=== PATIENT | male | born 1940 | race Caucasian/White ===

== ENCOUNTER 2020-12-12 14:49 | Emergency (ER) | payer MEDICARE, SELFPAY ==
[2020-12-12] VITALS (19 sets, daily range): BP systolic 129–148; BP diastolic 67–91; PULSE 81–106; RESP 9–23; TEMP 35.8; O2SAT 98–100
--- NOTE | ~2020-12-12 | CT_ITS ---
EXAMINATION: CTA chest PE protocol DATE: 12/12/2020 18:12 INDICATION: Shortness of breath shortness of breath TECHNIQUE: Computed tomography angiography (CTA) of the chest was performed with 100 mL Omnipaque-350 intravenous contrast timed to evaluate the pulmonary arteries. Coronal maximum intensity projection 3D-reconstructions were created by the technologist. The dose-length product (DLP) was 352.63 mGy-cm. Automated exposure control and iterative reconstruction technique were employed. COMPARISON: None. FINDINGS: The pulmonary arteries are well-opacified. No pulmonary embolism is identified. There is mi ld emphysema. An approximately 2.5 cm groundglass opacity is present in the right lower lobe. There i s no pleural effusion or pneumothorax. Mild right hilar lymphadenopathy is noted. The heart size is n ormal. Calcified coronary artery atherosclerosis is noted. There is moderate thoracic spondylosis. IMPRESSION: 1. No pulmonary embolism. 2. Minimal groundglass opacity of the right lower lobe which may be infectious or inflammatory howeve r minimally invasive adenocarcinoma could have a similar appearance. Follow-up CT in 3-6 months is re commended. 3. Mild right hilar lymphadenopathy, likely reactive. Reviewed, dictated and finalized at location A. NG WINDER IMPRESSION: 1. No pulmonary embolism. 2. Minimal groundglass opacity of the right lower lobe which may be infectious or inflammatory however minimally invasive adenocarcinoma could have a similar appearance. Follow-up CT in 3-6 months is recommended. 3. Mild right hilar lymphadenopathy, likely reactive.
--- NOTE | 2020-12-12 15:25 | ECG_ITS ---
Measurements Intervals Arvin Rate: 91 P: 31 VT: 168 QRS: -3 QRSD: 92 T: -27 QT: 361 QTc: 445 Interpretive Statements SINUS OR ECTOPIC ATRIAL RHYTHM LOW QRS VOLTAGE IN LIMB LEADS BORDERLINE T WAVE ABNORMALITY- INFERIOR LEADS BORDERLINE ECG Electronically Signed On 12-12-2020 15:33:59 MAILS SUPERVISOR by Eugenio Sanchez D.O.
[2020-12-12 16:19] LABS: Basophils Absolute Auto 0.1 K/mm3 (0.0-0.1); Basophils Percent Auto 0.6 % (0.2-1.2); Eosinophils Absolute Auto 0.1 K/mm3 (0-0.3); Eosinophils Percent Auto 0.5 % (0-4.4); Hematocrit 40.1 % (42.0-52.0); Hemoglobin 14.3 g/dL (14.0-18.0); Immature Granulocyte Absolute 0.08 K/mm3 (0.00-0.031); Immature Granulocyte Percent A 0.5 % (0-0.5); Lymphocytes Absolute Auto 1.12 K/mm3 (0.9-3.2); Lymphocytes Percent Auto 7.5 % (18.3-44.2); Mean Corpuscular HGB Conc 35.7 g/dl (32-36); Mean Corpuscular Hemoglobin 30.9 pg (26-34); Mean Corpuscular Volume 86.6 fl (80-100); Mean Platelet Volume 9.4 fl (7.4-10.4); Monocytes Absolute Auto 1.8 K/mm3 (0.1-0.6); Monocytes Percent Auto 11.9 % (2.6-8.5); Neutrophils Absolute Auto 11.9 K/mm3 (1.3-6.7); Platelet Count Result 402 k/mm3 (150-375); Red Blood Count 4.63 M/mm3 (4.6-6.20); Red Cell Distribution Width 11.6 % (11.5-14.5)
[2020-12-12 16:24] LABS: Anion Gap 11 mmol/L (8-16); Blood Urea Nitrogen 11 mg/dL (9-20); Calcium 9.8 mg/dL (8.4-10.2); Carbon Dioxide 23 mmol/L (22-30); Chloride 103 mmol/L (98-107); Estimated CRCL calculation 65 ml/min; Estimated Glomerular Filt Rate > 60; Glucose 110 mg/dL (75-110); Potassium 3.9 mmol/L (3.4-5.0); Sodium 137 mmol/L (137-145)
--- NOTE | 2020-12-12 17:37 | ED.ARRPALP ---
HPI - Arrhythmia/Palpitations General Chief Complaint: Arrhythmia/Palpitations Stated Complaint: palpations Time Seen by Provider: 12/12/20 15:46 History of Present Illness HPI narrative: Patient is a 80-year-old male who presents ER with palpitations. Patient reports he was seen in the [place] ER earlier today. He was diagnosed with atrial flutter and received 5 mg of Lopressor IV. It controlled his heart rate. He was then prescribed Toprol-XL for home. He was given follow-up with cardiology. Reports he been feeling well and went to a meeting and [place]. He then began to feel his heart rate elevate. He noticed on his pulse oximeter that his heart rate was going 130 bpm. He took his newly prescribed Toprol-XL. The symptoms lasted for couple hours but after taking the Toprol XL it slowed down upon his arrival here. He was having no chest pain or chest pressure. He did have some mild shortness of breath during the period of elevated heart rate. No additional concerns. Related Data Home Medications Medication Instructions Recorded Confirmed amlodipine 12/12/20 metoprolol tartrate 50 mg PO DAILY 12/12/20 spironolactone 12/12/20 Allergies Allergy/AdvReac Type Severity Reaction Status Date / Time Penicillins Allergy Rash Verified 12/12/20 15:50 Review of Systems Review of Systems: All systems reviewed & are unremarkable except as noted in HPI and below Constitutional: Constitutional: Denies chills, Denies fever(s) and Denies weakness ENT: Denies nasal congestion and Denies sore throat Cardiovascular: Cardiovascular: Denies chest pain, Reports rapid heart rate and Denies radiating jaw, neck or arm pain Respiratory: Respiratory: Denies chest congestion, Denies cough, Reports dyspnea and Denies wheezing Gastrointestinal: Gastrointestinal: Denies abdominal pain, Denies nausea and Denies vomiting Neurologic: Denies dizziness, Denies focal weakness and Denies numbness PMFSH Past Medical History Medical History (Updated 12/12/20 @ 18:57 by Luisito Sanchez MD) Diabetes Hyperlipidemia Hypertension Surgical History Surgical History (Updated 12/12/20 @ 17:39 by Luisito Sanchez MD) No pertinent past surgical history Social History Social History (Updated 12/12/20 @ 19:00 by Luisito Sanchez MD) Social History: Quit smoking over 30 years ago. Exam Narrative: Exam Narrative: GENERAL: Well-appearing, well-nourished, and in no acute distress. HEAD: Normocephalic, atraumatic. CHEST: Clear to auscultation. No respiratory distress. HEART: Regular rate and rhythm. Normal peripheral pulses. ABDOMEN: Soft, nontender, nondistended. EXTREMITIES: Normal range of motion. No edema. SKIN: Warm, dry, no rash. NEURO: Alert and oriented x3. PSYCH: Normal mood and affect. Course Course Emergency Course: Symptoms resolved on arrival here. Patient with mild elevation of WBCs when compared to outside records. Will rule out PE given recurrent arrhythmia today. Patient stable at this time. Vital Signs Vital signs: Vital Signs Temperature 96.4 F L 12/12/20 14:57 Pulse Rate 106 H 12/12/20 14:57 Respiratory Rate 18 12/12/20 14:57 Blood Pressure 138/77 12/12/20 14:57 Pulse Oximetry 100 12/12/20 14:57 Temperature 96.4 F L 12/12/20 14:57 Pulse Rate 85 12/12/20 18:52 Respiratory Rate 9 L 12/12/20 18:52 Blood Pressure 132/68 12/12/20 18:52 Pulse Oximetry 98 12/12/20 18:52 MDM - Arrhythmia/Palpitations Lab Data Result diagrams: 12/12/20 16:07 12/12/20 16:07 Labs: Lab Results 12/12/20 12/12/20 Range/Units 16:07 16:07 WBC 15.0 H (4.5-10.0) K/mm3 RBC 4.63 (4.6-6.20) M/mm3 Hgb 14.3 (14.0-18.0) g/dL Hct 40.1 L (42.0-52.0) % MCV 86.6 (80-100) fl MCH 30.9 (26-34) pg MCHC 35.7 (32-36) g/dl RDW 11.6 (11.5-14.5) % Plt Count 402 H (150-375) k/mm3 MPV 9.4 (7.4-10.4) fl Immature Gran % (Aut
== END 2020-12-12 19:14 | disposition home or self-care (01) ==
PROVIDERS: Emergency Provider Emergency Medicine
DX: R00.2 Palpitations (principal); R91.8 Other nonspecific abnormal finding of lung field; E11.9 Type 2 diabetes mellitus without complications; I10 Essential (primary) hypertension; E78.5 Hyperlipidemia, unspecified
CPT/HCPCS: 36415; 71275; 80048; 85025; 93005; 99284; Q9967

== ENCOUNTER 2025-03-21 13:54 | Outpatient (CLI) | payer MEDICARE, SELFPAY ==
--- NOTE | ~2025-03-21 | PE_ITS ---
EXAMINATION: PET_PETPSMAST_PT DATE: 03/21/2025 15:41 INDICATION: Prostatic cancer TECHNIQUE: 4.577 mCi of Illucix Ga-68([id number]) was administered i.v. Low dose computed vincent graphy (CT) images were acquired from the base of the brain to the base of the brain to the proximal thighs for attenuation correction and anatomic localization. Positron emission tomography (PET) image s were acquired in the same distribution beginning 82 minutes after injection. Images including fused PET/CT images were reconstructed in axial, coronal, and sagittal planes. Automated exposure control technique was employed. The dose-length product was 1019.36mGy-cm. COMPARISON: None FINDINGS: Head/neck: Typical pattern of symmetric physiologic increased activity in the lacrimal, parotid and submandibula r glands as well as along the mucosa of the nasal and oral cavities, pharynx and hypopharynx. No path ologically enlarged cervical lymphadenopathy or suspicious foci of increased uptake in the visualized head or neck. Chest: Mild dependent atelectasis in both lower lobes. No suspicious pulmonary nodules, pneumonia, pulmonary edema or pleural effusion. Heart size normal. Atherosclerotic coronary artery calcific lesion. No pe ricardial effusion. Thoracic aorta is normal in caliber. No pathologically enlarged or PSMA avid thor acic lymphadenopathy. Abdomen/pelvis/proximal thighs: Physiologic renal accumulation and excretion of activity in the kidneys, bladder and along portions o f ureters. There are 3 small region of increased PSMA to be in the prostate, one each at the left and right posterior margin of the prostate near the confluence with the seminal vesicles, slightly large r and more intense with maximal SUV of 11.3 on the right and with maximal SUV of 7.7 on the left. The third, smallest and most intense focus is located more caudally along the posterior inferior prostat e slightly to the right of midline with maximal SUV of 14.6. Normal degree and slightly heterogenous pattern of increased uptake throughout the liver and spleen without radiologic correlate or dominant PSMA avid lesion. The gallbladder, pancreas and bilateral adrenal glands are normal. Moderate uptake scattered throughout the bowels with typical duodenal and proximal jejunal predominance and without r adiologic correlate, also likely physiologic. Normal appendix. No other abnormal foci of increased up take or pathologically enlarged lymphadenopathy in the abdomen, pelvis or proximal thighs. Musculoskeletal: Severe thoracic spondylosis with mild anterior wedging of a few mid thoracic vertebral bodies. No leticia picious lytic, blastic or abnormally PSA may avid bone lesions. IMPRESSION: 1. 3 small regions of increased activity at the prostate consistent with locally recurrent disease. N o other evident metastatic disease. Reviewed, dictated and finalized at location B. IMPRESSION: 1. 3 small regions of increased activity at the prostate consistent with locall y recurrent disease. No other evident metastatic disease.
--- OUTSIDE RECORDS SUMMARY | 2025-03-21 15:12 | XMS_ITS ---
Author Organization [facility] Address [address] [place] [address] Care Team Providers Care Data Operations Leader Name Role Phone Rubens Mai Ma, MD Primary Care Provid er William Riggs MD Unavailable [phone] Jovanny Coombs MD Unavailable [phone] Armando Galeas MD Unavailable Hardy Montoya M.A., MD Unavailable [phone] Active Problems Problem Noted Date Diagnosed Date Prostate cancer 02/24/2022 Overview (02/24/2022): Added automatically from request for surgery [id number] Elevated PSA 01/24/2022 Overview (01/24/2022): Added automatically from request for surgery [id number] Abdominal pain 02/11/2021 Overview (02/11/2021): Added automatically from request for surgery [id number] Weight loss 02/11/2021 Overview (02/11/2021): Added automatically from request for surgery [id number] Abnormal CT scan of heart 01/16/2021 Overview (01/16/2021): Added automatically from request for surgery [id number] Chest pain on breathing 01/16/2021 Bandemia 01/16/2021 Controlled type 2 diabetes m ellitus without complication, without long-term current use of insulin 01/16/2021 Essential hypertension 01/16/2021 Mixed hyperlipidemia 01/16/2021 History of atrial fibrillation 01/16/2021 Encounter for screening colonoscopy 03/02/2018 Overview (03/02/2018): Added automatically from request for surgery [id number] 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 Diagnosis. 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 Right frontal scalp resection measuring 4 x 4 cm (Agency 09/10/17) Rhomboid adjacent tissue transfer reconstruction measruing 6 x 4 cm of the right scalp defect (Agency 09/10/17 Dyslipidemia Current Treatment and Therapy Plans No current plan information found. Past Treatment and Therapy Plans No past plan information found. Lifetime Dose Tracking * Chemical Lifetime Dose Automatic Entry Manual Entr y Air kerma at the reference point (Ka,r) 355 mGy 0 mGy 355 mGy
--- OUTSIDE RECORDS SUMMARY | 2025-03-21 15:12 | XMS_ITS | Data Portability ---
Author Organization [facility], [address] [place] [address] ([place]) Address [address] [place] [phone] Assessment Encounter Date Assessment Date Assessment LastModified by Organization Details LastModified Time 06/14/2024 06/14/2024 Discussed the importance of using sunscreen SPF 30 as well as wearing a wide brimmed hat. Monitor for any new or changing moles or skin lesions. Recommended yearly full-body skin checks. Biopsy results: final defect 1.2cm, hyperplastic actinic keratosis [email or web address] Not available 06/19/2024 19:09:48 09/13/2024 09/13/2024 Discussed the importance of using sunscreen SPF 30 as well as wearing a wide brimmed hat. Monitor for any new or changing moles or skin lesions. Recommended yearly full-body skin checks. No recurrence of HAK to left preauricular. [email or web address] Not available 09/12/2024 08:20:15 03/14/2025 03/14/2025 Discussed the importance of using sunscreen SPF 30 as well as wearing a wide brimmed hat. Monitor for any new or changing moles or skin lesions. Recommended yearly full-body skin checks. No recurrence of HAK to left preauricular. [email or web address] Not available 03/13/2025 10:53:53 Plan of Treatment Reminders Order Date Submit Date Provider Last Modified By Organization Details Last Modified Time Details Appointments Establish ed Patient 15.EST 2024 09:45A M Jasmin Murray Not available Not available Not available Lab surgical pathology study 2023 024 GREG Pr Only - Pr Laboratory, [address] [place] [address], [id number], 06/17/2024 15:07:09 Referral None recorded. Procedures None recorded. Surgeries None recorded. Imaging None recorded. Medication Orders None recorded. Patient TargetsNo targets recorded. Patient Instructions Encounter Date Encounter Id Patient Instructions Last Modified By Organization Details Last Modified Time 06/14/2024 [id number] Plan of care reviewed and discussed with patient. Patient verbalizes understanding and has no questions. [email or web address] Not available 06/13/2024 17:49:02 09/13/2024 [id number] Plan of care reviewed and discussed with patient. Patient verbalizes understanding and has no questions. [email or web address] Not available 09/12/2024 08:18:52 03/14/2025 [id number] Plan of care reviewed and discussed with patient. Patient verbalizes understanding and has no questions. [email or web address] Not available 03/13/2025 10:53:53 Reason for Referral None Reported. Results Created Date Observation Date Name Description Value Unit Range Abnormal Flag Note LastModifiedBy Organization Detail LastModifiedTime 06/14/20 24 06/17/2024 surgi clary patho logy study tissue exam biopsy [facility] [address] [address] Ph. Hunter Granados MD, PhD, [facility] WILLY ONSaundra, HUMAIRA Lux nt: WHIT STEINBERG, PATRICIA Arguello G Sampl e ID: [id number] Repor t Statu s: Final :1 1939 Case #: [id number] Age: 83 Y Gende r: M Date Colle cted: 06/14 MRN # : [id number] Date Recei angie: 06/16 Repor drake Date: 06/17 FINAL DIAGN OSIS: Skin, left pre auric ular, shave biops y: - Actin ic kerat osis, hyper plast ic ICD-1 0: L57.0 Elect george Robles ied by MD Ladonna Nguyễn 06/17 14:04 SPECI MEN SOURC E: Skin, left pre auric ular, shave biops y GROSS DESCR IPTIO N: The speci men conta iner( s) and requi sitio n have the same patie nt name. Recei angie in 10% neutr al buffe red forma festus for forma festus-f ixed paraf fin-e mbedd ed secti ons label ed left pre auric ular is an unori ented 1.8 x 1.5 cm fragm ent of light- lainez skin excis ed to a depth of 0.1 cm. A 1.8 x 1.5 x 0.1 cm brown rough ened betsey n is prese nt on the skin surfa ce and is adjac ent to the nehemias n. The speci men is inked , seria lly secti on, and entir barry submi tted for histo logic study in two casse ttes. CLINI CLARY INFOR MATJESSICA N: Skin biops y, left pre auric ular, SCC vs BCC. Not Available Sc Only - [facility] Laboratory [address] [place] [address], [id number], 06/17/2024 15:07:09 Result Notes None recorded. Problems Name Problem SNOMED Code Status Onset Date Resolution Date Notes Provider Name and Address Organization Details Recorded Time Seborrheic keratosis 212614462 Active 2024 Jasmin Murray PA-C [address] [place] [address], [phone], [facility] 5 10:17:32 Solar degeneratio n 67147919 Active 2023 Jasmin Murray PA-C [address] [place] [address], [phone], [facility] 5 10:17:33 Squamous cell carcinoma 990812858 Completed 202306/14/2024 RIGHT FORHEA D- 2004 [facility] 4 10:38:07 Neoplasm of uncertain behavior of skin 96922433 Active 2023 Jasmin Murray PA-C [address] [place] [address], [phone], [facility] 4 10:55:12 Actinic keratosis 897132609 Active 2023 left preaur icular - 06/15 [facility] 4 10:36:52 Problem Notes None recorded. Procedures Surgical History Date Name Laterality Status Provider Name and Address Organization Details Recorded Time 5 Actinic Keratoses completed Jasmin Murray PA-C [address] [place] [address], [phone], [facility] 03/14/2025 10:17:18 4 Actinic Keratoses completed Jasmin Murray PA-C [address] [place] [address], [phone], [facility] 09/13/2024 09:53:03 4 Shave Biopsy completed Jasmin Murray PA-C [address] [place] [address], [phone], [facility] 06/14/2024 10:54:59 4 Actinic Keratoses completed Jasmin Murray PA-C [address] [place] [address], [phone], [facility] 06/14/2024 10:54:24 Imaging Results None recorded. Procedure Notes None recorded. Medical Equipment None Reported. Allergies Allergen ID Allergen Name Allergen Category Reaction Reaction Severity Criticality Documentation Date Start Date Code Code System Note Provider Name and Address Organization Details Recorded Time 0185826 Product containin g penicilli n (product) medicatio n swelling Not available Not available 06/14/2024 95291 8001 SNOMED Not Available Not Available Not Available Medications Name Sig Start Date Stop Date Status Note LastModified by Organization Details LastModified Time atorvastati n 20 mg tablet TAKE 1 TABLET BY MOUTH EVERYDAY AT BEDTIME 06/14 completed Not Available Not Available Not Available metoprolol succinate ER 50 mg tablet,exte nded release 24 hr TAKE 1 TABLET BY MOUTH TWICE A DAY active Not Available Not Available No t Available isosorbide mononitrate ER 30 mg tablet,exte nded release 24 hr TAKE 1 TABLET BY MOUTH EVERY DAY active Not Available Not Available No t Available spironolact one 25 mg tablet TAKE 1 TABLET (25 MG TOTAL) BY MOUTH DAILY. active Not Available Not Available No t Available tamsulosin 0.4 mg capsule TAKE 1 CAPSULE BY MOUTH EVERY DAY active Not Available Not Available No t Available benzonatate 100 mg capsule TAKE 1 CAPSULE BY MOUTH THREE TIMES A DAY NEEDED FOR COUGH 03/14 completed Not Available Not Available Not Available fluocinonid e 0.05 % topical cream APPLY TO AFFECTED AREA 3-4 TIMES A DAY NEEDED FOR ITCH/BITE /POSION JULIAN 06/14 completed Not Available Not Available Not Available cholecalcif ramesh (vitamin D3) 125 mcg (5,000 unit) capsule TAKE 1 CAPSULE (125 MCG TOTAL) BY MOUTH DAILY. active Not Available Not Available No t Available ezetimibe 10 mg tablet TAKE 1 TABLET BY MOUTH EVERY DAY active Not Available Not Available No t Available Repatha Syringe 140 mg/mL subcutaneou s syringe INJECT 1 ML (140 MG TOTAL) INTO THE SKIN EVERY 14 DAYS active Not Available Not Available No t Available Vitals None Recorded Social History None recorded. Functional Status None recorded. Mental Status None recorded. Family History Nothing Reported Notes:DENIES FAM H/O SKIN CA NCER Medical History No medical history recorded. Past Encounters Encounter ID Performer Location Encounter Start Date Encounter Closed Date Diagnosis/Indication Diagnosis SNOMED-CT Code Diagnosis ICD10 Code Diagnosis Note [id number] [facility] [address] [place] [address] 06/14/2024 10:31:08 06/14/2024 11:02:59 Solar degeneration 93705642 L57.9 Neoplasm o f uncertain behavior of skin 73044461 D48.5 Actinic keratosis 007 L57.0 cryo x 10 [id number] [facility] [address] [place] [address] 09/13/2024 09:40:30 09/13/2024 09:56:29 Actinic keratosis L57.0 cryo x 4 [id number] [facility] [address] [place] [address] 03/14/2025 09:51:02 03/14/2025 10:17:29 Actinic keratosis 489522301 L57.0 cryo x 5 Seborrheic keratosis 394 902406 L82.1 Solar degeneration 08752 006 L57.8 Health Concerns Section Related Observation LastModified by Organization Detai ls LastModified Time None Recorded Concern Status LastModified by Organization Details LastModified Time None Recorded Advance Directives Directive None Recorded Payers Encounter Date Sequence Insurance Name Policy Number Policy Parker Covered Member ID Parker Member ID Guarantor Name 06/14/2024 1 [place] Puma Shelbyt [id number] 5 Puma Thompsonrett 09/13/2024 1 [place] P[place] Thompson[place] [id number] 5 Puma Thompsonrett 03/14/2025 1 [place] Puma Thompson[place] [id number] 5 Puma Shelbyt Notes Date Note Type Note Provider Name and Address Organization Details Recorded Time 06/14/2024 text/html 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 Ceballos, here to [facility] face. Pt states a h/o SCC to right forehead removed in 2004. Jasmin Murray PA-C [address] [place] [address], [phone], [facility] 06/19/2024 19:10:28 09/13/2024 text/html 3 mo recheck biopsy proven HAK to left preauricular. Recheck 10 AKs treated with cryo last OV. Hx of SCC to right forehead removed in 2004. no new concerns. Jasmin Murray PA-C [address] [place] [address], [phone], [facility] 09/13/2024 09:53:41 03/14/2025 text/html 6 mo [place] recheck. 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 Hx of SCC to right forehead removed in 2004. has new area of concern to his chest. all others you treated are gone per pt. Jasmin Murray PA-C [address] [place] [address], [phone], [facility] 03/14/2025 10:18:13
--- OUTSIDE RECORDS SUMMARY | 2025-03-21 15:12 | XMS_ITS | Encounter Summary ---
Author Organization [facility] Address [address] [place] [address] Care Team Providers Care Avionics Systems Integration Specialist Name Role Phone Rubens Mai MD Primary Care Provider [phone] Hardy Montoya MD Unavailable [phone] Héctor Ceballos MD Primary Care Provider + [phone] Encounter Details Date Type Department Care Team (Late st Contact Info) Description 12/17/2020 Hospital Follow-up Call [facility] [address] [place] [address] Cny Daniel, RN Social History Tobacco Use Types Packs/Day Years Used Date Smoking Tobacco: Former Cigarettes Q uit: 1981 Smokeless Tobacco: Never Alcohol Use Standard Drinks/Week Comments Not Currently 0 (1 standard drink = 0.6 oz pur e alcohol) 2 glasses of alcohol weekly Overall Financial Resource Strain (CARDIA) Answe r Date Recorded How hard is it for you to pa y for the very basics like food, housing, medical care, and heating? Not hard at all 12/13/2020 [facility] [place] [facility] ional [facility] - Occupational Stress Questionnaire Answer Date Recorded Do you feel stress - tense, restless, nervous, or anxious, or unable to sleep at night because your mind is troubled all the time - these days? Not at all 12/13/2020 Hunger Vital Sign Answer Date Recorded Within the past 12 months, y ou worried that your food would run out before you got the money to buy more. Never true 12/13/19 21 Within the past 12 months, t he food you bought just didn't last and you didn't have money to get more. Never true 12/13/2020 PRAPARE - Transportation Answer Date Re corded In the past 12 months, has l ack of transportation kept you from medical appointments or from getting medications? No 11/24 In the past 12 months, has l ack of transportation kept you from meetings, work, or from getting things needed for daily living? No 12/13/2020 Sex and Gender Information Value Date Recorded Sex Assigned at Not on file Legal Sex Male 9:12 AM HELP DESK SUPERVISOR Gender Identity Not on file Sexual Orientation Not on file Occupation Industry Job Start Date Job End Date retired Not on file Not on file Not on file COVID-19 Exposure Response Date Recorded In the last month, have you been in contact with someone who was confirmed or suspected to have Coronavirus / COVID-19? Yes 12/13/2020 11:14 AM HELP DESK SUPERVISOR documented as of this encounter Functional Status * RETIRED Are you deaf or do you have serious difficulty hearing Answer Date of Assessment Author Status No 12/13/2020 8:25 AM HELP DESK SUPERVISOR Activ e * RETIRED Are you blind or do you have serious difficulty seeing, even when wearing glasses? Answer Date of Assessment Author Status No 12/13/2020 8:25 AM HELP DESK SUPERVISOR Activ e * Do you have serious difficulty walking or climbing stairs? Answer Date of Assessment Author Status No 12/13/2020 8:25 AM HELP DESK SUPERVISOR Erma Ho RN Active * Do you have difficulty dressing or bathing? Answer Date of Assessment Author Status No 12/13/2020 8:25 AM Erma Mercedes RN Active * Because of a physical, mental, or emotional condition, do you have difficulty doing errands alone such as visiting a doctor's office or shopping? Answer Date of Assessment Author Status No 12/13/2020 8:25 AM Erma Mercedes RN Active documented as of this encounter Mental Status * Because of a physical, mental, or emotional condition, do you have serious difficulty concentrating, remembering, or making decisions? Answer Entry Date Author Status No 12/13/2020 8:25 AM Erma Mercedes RN Active documented in this encounter Plan of Treatment Upcoming Encounters Date Type Department Care Team (Late st Contact Info) Description 04/13/2025 7:20 AM CDT Office Visit [facility] [address] [place] [address] Héctor Ceballos MD [address] [place] [address] 10/11/2025 9:00 AM HELP DESK SUPERVISOR Office Visit [facility] [address] [place] [address] Hardy Montoya MD [address] , [facility] [address] [place], [place] [address] documented as of this encounter Visit Diagnoses Not on filedocumented in this encounter Additional Health Concerns Infection Onset Date Last Indicated Resolved Time COVID-19 Confirmed 12/13/2020 12/13/2020 12:34 AM HELP DESK SUPERVISOR COVID-19 Rule Out 12/13/2020 12/13/2020 10/14/2021 5:21 PM HELP DESK SUPERVISOR COVID-19 Rule Out 07/08/2022 07/08/2022 07/08/2022 1:43 PM CDT COVID-19 Confirmed 07/08/2022 07/08/2022 12:33 AM CDT COVID-19 Rule Out 10/26/2024 10/26/2024 10/26/2024 4:16 PM HELP DESK SUPERVISOR documented as of this encounter Care Teams Avionics Systems Integration Specialist Relationship Specialty Start Date End Date Rubens Mai MD [address] [place] [address] [place] [address] PCP - General EMERGENCY MEDICINE 12/13/20 04/13/22 Héctor Ceballos MD [address] [place] [address] PCP - General FAMILY PRACTICE 04/14/22 Hardy Montoya MD [address] , [facility] [address] [place] [address] [place] Director Semiconductor INTERVENTIONAL CARDIOLOGY 01/07/21 documented as of this encounter
--- OUTSIDE RECORDS SUMMARY | 2025-03-21 15:12 | XMS_ITS | Clinical Summary ---
Author Organization [facility] Address [address] [place] [address] Phone Care Team Providers Care Clinical Nursing Director Name Role Phone Rubens Mai MD Primary Care Provider [phone] Allergies Active Allergy Reactions Criticality Noted Date Comments Penicillin G Swelling 02/10/2017 Medications METFORMIN HCL PO Take by mouth. Active Simvastatin (ZOCOR PO) Take by mouth. Active Social History Tobacco Use Types Packs/Day Years Used Date Smoking Tobacco: Every Day Cigarettes 1 25 Alcohol Use Standard Drinks/Week Comments Not Asked 0 (1 standard drink = 0.6 oz pur e alcohol) Sex and Gender Information Value Date Recorded Sex Assigned at Not on file Legal Sex Male 5:41 PM CDT Gender Identity Not on file Sexual Orientation Not on file Plan of Treatment Health Maintenance Due Date Last Done Comments Hepatitis C Virus (HCV) Screening 1942 TdaP Immunization 1942 Pneumococcal Immunization (5 0+ years) (1 of 1 - PCV) 1992 Zoster Immunization (1 of 2) 1992 Respiratory Syncytial Virus (RSV) Immunization (Adult) (1 - 1-dose 75+ series) 2017 Influenza Immunization (#1) 2024 SARS-COV-2 Immunization (2023- season) 2024 10/31/2021, 02/25/2021, 01/28/2021 Hepatitis B Immunization Aged Out No longer eligible based on patient's age to complete this topic Meningococcal Immunization (ACWY) Aged Out No longer eligible b ased on patient's age to complete this topic Rotavirus Immunization Aged Out No lo nger eligible based on patient's age to complete this topic Insurance MEDICARE [employer] GENERIC Care Teams Clinical Nursing Director Relationship Specialty Start Date End Date Rubens Mai MD [address] [place] [address] ZACHARY STILES [id number] PCP - General Family Medicine 09/02/16
--- OUTSIDE RECORDS SUMMARY | 2025-03-21 15:12 | XMS_ITS | Clinical Summary ---
Author Organization [facility] Address [address] [place] [address] Care Team Providers Care Journeyman Wireman Name Role Phone Rubens Mai Ma, MD Primary Care Provid er William Riggs MD Unavailable [phone] Jovanny Coombs MD Unavailable [phone] Armanod Galeas MD Unavailable Hardy Montoya M.A., MD Unavailable [phone] Allergies Active Allergy Reactions Criticality Noted Date Comments Penicillins Swelling Medium Medications nitroglycerin (NITROSTAT) 0.[address] 1 tablet (0.4 mg total) under the tongue every 5 (five) minutes as needed for chest pain Hold if low blood pressures, Call 911 25 tablet 1 Active acetaminophen (TYLENOL) 500 mg tablet Take 2 tablets (1,000 mg total) by mouth every 8 (eight) hours as needed for pain for up to 20 doses 40 tablet 1 Active Additional Information Patient taking differently:1,000 mg oralAs needed, pain, Reported on 01/27/2022 isosorbide mononitrate ER (IMDUR) 30 mg 24 hr tabletIndication s:prevention of anginal pain in coronary artery disease Take 30 mg by mouth every morning 2 Active metoprolol XL (TOPROL-XL) 50 mg extended release tabletIndication s:hypertension Take 50 mg by mouth 2 (two) times a day 1 Active spironolactone (ALDACTONE) 25 mg tabletIndication s:hypertension Take 25 mg by mouth every morning 2 Active tamsulosin (FLOMAX) 0.4 mg extended release capsuleIndicatio ns:benign prostatic hyperplasia with lower urinary tract sx Take 0.4 mg by mouth every morning 1 Active tamsulosin (FLOMAX) 0.4 mg extended release capsuleIndicatio ns:Benign prostatic hyperplasia, unspecified whether lower urinary tract symptoms present Take 1 capsule (0.4 mg total) by mouth daily 30 capsule 11 2 Active Active Problems Problem Noted Date Diagnosed Date Prostate cancer 02/24/2022 Overview (02/24/2022): Added automatically from request for surgery [id number] Elevated PSA 01/24/2022 Overview (01/24/2022): Added automatically from request for surgery [id number] Abdominal pain 02/11/2021 Overview (02/11/2021): Added automatically from request for surgery [id number] Weight loss 02/11/2021 Overview (02/11/2021): Added automatically from request for surgery [id number] Abnormal CT scan of heart 01/16/2021 Overview (01/16/2021): Added automatically from request for surgery [id number] Chest pain on breathing 01/16/2021 Bandemia 01/16/2021 Controlled type 2 diabetes m ellitus without complication, without long-term current use of insulin 01/16/2021 Essential hypertension 01/16/2021 Mixed hyperlipidemia 01/16/2021 History of atrial fibrillation 01/16/2021 Encounter for screening colonoscopy 03/02/2018 Overview (03/02/2018): Added automatically from request for surgery [id number] Primary cancer of skin of forehead 03/02/2018 Overview (03/02/2018): Added automatically from request for surgery [id number] 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 Diagnosis. 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 Right frontal scalp resection measuring 4 x 4 cm ([facility] 09/10/17) Rhomboid adjacent tissue transfer reconstruction measruing 6 x 4 cm of the right scalp defect ([facility] 09/10/17 Dyslipidemia Immunizations Immunization Administration Dates Next Due Moderna SARS-CoV-2 Monovalen t Vaccination (12+ YRS) 10/31/2021,02/25/2021,01/28/2021 Surgical History Surgery Date Site/Laterality Comments COLONOSCOPY 03/23/2018 - 04/22/2018 ESOPHAGOGASTRODUODENOSCOPY 01/21/2021 - 02/20/2021 CARDIAC CATHETERIZATION 12/24/2020 - 01/20/2021 Left SKIN CANCER EXCISION 11/23/2017 - 11/22/2018 scalp, squaumous cell PROSTATE BIOPSY 02/04/2022 Medical History Medical History Date Comments Hypertension Dxd ~2001 History of skin cancer SCCA Scal p s/p excision 2017 History of atrial flutter Starte d on Eliquis 11/2020 Motion sickness PONV (postoperative nausea a nd vomiting) Per pt, occured with SCCA ex cision 2017 but denies PONV with colonoscopy or EGD after that. History of prediabetes Per pt, d xd ~2001 Personal history of COVID-19 +CO VID 10/2020-- Pt asymptomatic CAD (coronary artery disease) Pe r [facility] 01/17/2021-- 2 vessel coronary artery disease per nominal involving the mid to distal LAD (30-50%) and the distal circumflex (50-60% followed by 70-80% in the small terminal marginal branch); 30% distal RCA.; Followed by clinical data assistant, Dr Montoya at [facility] Family History Medical History Relation Name Comments Heart attack Father Diabetes Mother Heart attack Mother Anesthesia problems Neg Hx Relation Name Status Comments Father Mother Social History Tobacco Use Types Packs/Day Years Used Date Smoking Tobacco: Former Cigarettes 2 26 1 956 - 1981 Smokeless Tobacco: Never Alcohol Use Standard Drinks/Week Comments Yes 2 (1 standard drink = 0.6 oz pur e alcohol) Thursday night AUDIT-C Answer Date Recorded Q1: How often do you have a drink containing alc ohol? Monthly or less 03/13/2022 Q2: How many drinks containi ng alcohol do you have on a typical day when you are drinking? 1 or 2 03/13/2022 Q3: How often do you have si x or more drinks on one occasion? Never 03/13/2022 PHQ-2 Answer Date Recorded PHQ-2 Total Score (If total score is 3 or more points, staff should administer the PHQ-9) 6 02/11/2021 Sex and Gender Information Value Date Recorded Sex Assigned at Not on file Legal Sex Male 12:37 AM MANAGER BRAND Gender Identity Not on file Sexual Orientation Not on file Obstetrics History Last Filed Vital Signs Vital Sign Reading Time Taken Comments Blood Pressure 174/82 03/13/2022 11:05 AM CDT Pulse 76 03/13/2022 11:05 AM CDT Temperature 35 C (95 F) 03/13/2022 10:50 AM CDT Respiratory Rate 15 03/13/2022 11:05 AM CDT Oxygen Saturation 100% 03/13/2022 11:05 AM CDT Inhaled Oxygen Concentration - - Weight 70.3 kg (155 lb) 03/13/2022 6:05 AM CDT Height 165.1 cm (5' 5 ) 03/13/2022 6:05 AM CDT Body Mass Index 25.79 03/13/2022 6:05 AM CDT Plan of Treatment Health Maintenance Due Date Last Done Comments Albumin Creatinine Ratio, Urine 1942 Hemoglobin A1C 1942 Dilated Eye Exam 1942 Foot Exam 1942 DTaP/Tdap/Td Vaccine (1 - Tdap) 1953 Hepatitis B Screening 1960 Pneumococcal vaccine 65+ (1 of 2 - PCV) 1961 Zoster Vaccine (1 of 2) 1992 Well Visit 65+ 2007 Lipid Panel 01/17/2022 01/17/2021, 12/13/2020 Depression Screening 02/11/2022 02/11/2021, 01/24/2021, 01/16/2021, Additional history exists eGFR 02/22/2022 02/22/2021, 01/21, 01/19/2021, Additional history exists Fall Risk Assessment 03/13/2023 03/13/2022 Covid-19 Vaccine (2023-2 5 season) 2024 10/31/2021, 02/25/2021, 01/28/2021 Influenza Vaccine (Season Ended) 2025 Abdominal Aortic Aneurysm (A AA) Screen Completed 02/07/2021 Procedures Procedure Name Priority Date/Time Associated Diagnosis Comments EGFR STAT 02/22/2021 1:[address] ABDOMEN PELVIS W CONTRAST ED 02/07/2021 2:56 PM CDT LIPID PANEL Routine 01/17/2021 6:51 AM MANAGER BRAND from Last 3 Months or Most Recently Relevant to Health Maintenance Results * eGFR (02/22/2021 1:26 PM CDT) eGFR 96 mL/min/1.7 3 m2 [facility] Comment: Interpretive Data Reference Interval Normal >/= 90 mL/min/1.73m2 Mildly decreased* 60 - 89 mL/min/1.73m2 Mildly to moderately decreased 45 - 59 mL/min/1.73m2 Moderately to severely decreased 30 - 44 mL/min/1.73m2 Severely decreased 15 - 29 mL/min/1.73m2 Kidney Failure < 15 mL/min/1.73m2 *Relative to young adult level Estimated glomerular filtration rate is determined by the CKD-EPI equation recommended by the National Kidney Foundation (KDIGO 2012 Clinical Practice Guideline for the Evaluation and Management of Chronic Kidney Disease. Kidney Intnl Suppl Nov 2012;3:1). The CKD-EPI equation should not be used for patients with unstable renal function and has not been validated in children and those over 70. Current interpretive data was last reviewed 2020 Blood specimen (specimen) 02/22/2021 1:26 PM CDT 02/22/2021 1:38 PM CDT us Ivonne LEW LAB BLOOD ORDERABLES Final Re sult [facility] [address] Department [place] [address] * CT Abdomen Pelvis W Contrast (02/07/2021 2:56 PM CDT) Anatomical Region Laterality Modality Body N/A Computed Tomogra phy 02/07/2021 3:22 PM CDT Impressions 02/07/2021 3:41 PM CDT 1. No acute/subacute findings. 2. Right prostate peripheral zone lesion is indeterminate. The differential includes prostate adenocarcinoma, focal hemorrhage/prostatitis, and a herniated benign prostatic hyperplasia nodule. Correlation with serum prostate-specific antigen levels and urology referral or prostate MRI are recommended. Electronically signed by: David Stone M.D. Narrative 02/07/2021 3:41 PM CDT EXAMINATION: CT ABDOMEN PELVIS W CONTRAST ORDERING HEALTHCARE PROVIDER: LULI CONNELL HISTORY: Right upper quadrant pain for 2 weeks that worsens after eating TECHNIQUE: CT abdomen and pelvis with intravenous and without oral contrast using helical scanning technique. Reconstructed coronal and sagittal images reviewed. Automated exposure control was used as a dose optimization technique for this examination. 100 mL Optiray 320 was administered in the right antecubital fossa COMPARISON: 02/10/2017 FINDINGS: LOWER CHEST: The lung bases are clear. Heart size is normal. LIVER: Unremarkable. GALLBLADDER: Unremarkable. SPLEEN: Unremarkable. PANCREAS: Unremarkable. ADRENALS: Unremarkable. KIDNEYS/URINARY TRACT: Kidneys are unremarkable. No urolithiasis. No hydroureteronephrosis. Urinary bladder is unremarkable. GI: Bowel caliber is normal. Appendix is normal. There is colonic diverticulosis without associated inflammatory changes. PERITONEUM: No pneumoperitoneum or ascites. VASCULATURE: No abdominal aortic aneurysm. MUSCULOSKELETAL: No aggressive lesions. OTHER: There is a right prostate peripheral zone lesion measuring 1.3 cm x 1.0 cm (axial image 137). The prostate is enlarged consistent with benign prostatic hyperplasia. Procedure Note David Stone MD - 02/07/2021 EXAMINATION: CT ABDOMEN PELVIS W CONTRAST ORDERING HEALTHCARE PROVIDER: LULI CONNELL HISTORY: Right upper quadrant pain for 2 weeks that worsens after eating TECHNIQUE: CT abdomen and pelvis with intravenous and without oral contrast using helical scanning technique. Reconstructed coronal and sagittal images reviewed. Automated exposure control was used as a dose optimization technique for this examination. 100 mL Optiray 320 was administered in the right antecubital fossa COMPARISON: 02/10/2017 FINDINGS: LOWER CHEST: The lung bases are clear. Heart size is normal. LIVER: Unremarkable. GALLBLADDER: Unremarkable. SPLEEN: Unremarkable. PANCREAS: Unremarkable. ADRENALS: Unremarkable. KIDNEYS/URINARY TRACT: Kidneys are unremarkable. No urolithiasis. No hydroureteronephrosis. Urinary bladder is unremarkable. GI: Bowel caliber is normal. Appendix is normal. There is colonic diverticulosis without associated inflammatory changes. PERITONEUM: No pneumoperitoneum or ascites. VASCULATURE: No abdominal aortic aneurysm. MUSCULOSKELETAL: No aggressive lesions. OTHER: There is a right prostate peripheral zone lesion measuring 1.3 cm x 1.0 cm (axial image 137). The prostate is enlarged consistent with benign prostatic hyperplasia. IMPRESSION: 1. No acute/subacute findings. 2. Right prostate peripheral zone lesion is indeterminate. The differential includes prostate adenocarcinoma, focal hemorrhage/prostatitis, and a herniated benign prostatic hyperplasia nodule. Correlation with serum prostate-specific antigen levels and urology referral or prostate MRI are recommended. Electronically signed by: David Stone M.D. Luli Connell NP IMG CT PROCEDURES Final Resu lt * (ABNORMAL) Lipid panel (01/17/2021 6:51 AM MANAGER BRAND) Cholesterol 203(H) 30 - 199 mg/dL [facility] Comment: Interpretive Data Ages < or = 19 years Acceptable: <170 mg/dL Borderline high: 170-199 mg/dL High: >or= 200 mg/dL Ages > or = 20 years Desirable: <200 mg/dL Borderline high: 200-239 mg/dL High: >or= 240 mg/dL Literature References: 1. Expert Panel on Integrated Guidelines for Cardiovascular Health and Risk Reduction in Children and Adolescents. Pediatrics 2011;128:S213 2. NCEP Expert Panel. Circulation 2004;110:227 Current Interpretive Data was last revised on 2018. Triglycerides 291(H) <=149 mg/dL [facility] Comment: Interpretive Data Ages < or = 9 years Acceptable: <75 mg/dL Borderline high: 75-99 mg/dL High: >or= 100 mg/dL Ages 10 to 20 years Acceptable: <90 mg/dL Borderline high: 90-129 mg/dL High: >or= 130 mg/dL Ages > or = 20 years Desirable: <150 mg/dL Borderline high: 150-199 mg/dL High: 200-499 mg/dL Very high: >or= 499 mg/dL Literature References: 1. Expert Panel on Integrated Guidelines for Cardiovascular Health and Risk Reduction in Children and Adolescents. Pediatrics 2011;128:S213 2. NCEP Expert Panel. Circulation 2004;110:227 Current Interpretive Data was last revised on 2018. HDL 32(L) >=40 mg/dL [facility] Comment: Interpretive Data Ages < or = 19 years Acceptable: >45 mg/dL Borderline low: 40-45 mg/dL Low: <40 mg/dL Ages > or = 20 years Desirable: >or= 60 mg/dL Low: <40 mg/dL Literature References: 1. Expert Panel on Integrated Guidelines for Cardiovascular Health and Risk Reduction in Children and Adolescents. Pediatrics 2011;128:S213 2. NCEP Expert Panel. Circulation 2004;110:227 Current Interpretive Data was last revised on 2018. LDL, calculated 113 <=129 mg/dL [facility] Comment: Interpretive Data Ages < or = 19 years Acceptable: <110 mg/dL Borderline high: 110-129 mg/dL High: >or= 130 mg/dL Ages > or = 20 years Optimal: <100 mg/dL Near optimal: 100-129 mg/dL Borderline high: 130-159 mg/dL High: >160 mg/dL Literature References: 1. Expert Panel on Integrated Guidelines for Cardiovascular Health and Risk Reduction in Children and Adolescents. Pediatrics 2011;128:S213 2. NCEP Expert Panel. Circulation 2004;110:227 Current Interpretive Data was last revised on 2018. Non-HDL Cholesterol 171 mg/dL [facility] Comment: Interpretive Data Ages < or = 19 years Acceptable: <120 mg/dL Borderline high: 120-144 mg/dL High: >145 mg/dL Ages > or = 20 years When triglycerides are >200 mg/dL, Non-HDL cholesterol is a secondary target of therapy with treatment goals that are 30 mg/dL greater than the LDL cholesterol target. Literature References: 1. Expert Panel on Integrated Guidelines for Cardiovascular Health and Risk Reduction in Children and Adolescents. Pediatrics 2011;128:S213 2. NCEP Expert Panel. Circulation 2004;110:227 Current Interpretive Data was last revised on 2018. Chol/HDL ratio 6 [facility] Blood specimen (specimen) 01/17/2021 6:51 AM MANAGER BRAND 01/17/2021 3:13 PM MANAGER BRAND us Jovanny Coombs MD LAB BLOOD ORDERABLES Final Res ult [facility] [address] Department [place] [address] from Last 3 Months or Most Recently Relevant to Health Maintenance Insurance MEDICARE [facility] Address: [address] [address] COMMERCIAL GENERIC MEDICARE [employer] S[employer]IOR [employer] Advance Directives For more information, please contact: [phone] * Full Code (Latest Code Status on File) Date Activated Date Inactivated Comments 01/17/2021 1:53 PM 01/19/2021 6:59 PM * Full Code Date Activated Date Inactivated Comments 01/16/2021 7:55 PM 01/17/2021 1:53 PM * Full Code Date Activated Date Inactivated Comments 03/25/2018 8:54 AM 03/25/2018 12:51 PM Care Teams Journeyman Wireman Relationship Specialty Start Date End Date Rubens Mai Ma, MD [address] [place] [address] PCP - General 03/27/17 William Riggs MD [address] [place] [address] Referring Physician Dermatology 05/05/18 Jovanny Coombs MD [address] [place] [address] Consulting Physician Cardiology 01/19/21 Armando Galeas MD [address] [place] [address] [place] [address] Consulting Physician Gastroenterology 01/19/21 Hardy Montoya M.A., MD [address] [place] [id number] Referring Physician Cardiovascular Disease 01/19/21
--- OUTSIDE RECORDS SUMMARY | 2025-03-21 15:12 | XMS_ITS | Clinical Summary ---
Author Organization [facility] Address [address] [place] [address] Care Team Providers Care Senior Government Program Analyst Name Role Phone Hardy Montoya MD Unavailable [phone] Héctor Ceballos MD Primary Care Provider [phone] Allergies Active Allergy Reactions Criticality Noted Date Comments Penicillin G Swelling 02/10/2017 Poison Elise Extract Rash Low 09/10/2022 Statins Myalgias 09/19/2024 Recalls side effects with atorvastatin and says he tried a few statins all causing myalgias Medications ezetimibe (ZETIA) 10 MG tabletIndications:C oronary artery disease involving [place] coronary artery of [place] heart without angina pectoris,Mixed hyperlipidemia Take 1 tablet (10 mg total) by mouth daily. 90 tablet 1 4 Active isosorbide mononitrate ER (IMDUR) 30 MG 24 hr tabletIndications:C oronary artery disease involving [place] coronary artery of [place] heart without angina pectoris,Essential hypertension Take 1 tablet (30 mg total) by mouth daily. 90 tablet 1 4 Active metoprolol succinate ER (TOPROL-XL) 50 MG 24 hr tabletIndications:C oronary artery disease involving [place] coronary artery of [place] heart without angina pectoris,Essential hypertension,Atrial fibrillation, unspecified type (CMS/HCC HHS/HCC) Take 1 tablet (50 mg total) by mouth 2 (two) times daily. 180 tablet 1 4 Active spironolactone (ALDACTONE) 25 MG tabletIndications:E ssential hypertension Take 1 tablet (25 mg total) by mouth daily. 90 tablet 1 4 Active rivaroxaban (XARELTO) 2.5 MG tabletIndications:A trial fibrillation, unspecified type ([facility]) Take 1 tablet (2.5 mg total) by mouth daily with supper. Take with food 90 tablet 1 4 Active tamsulosin (FLOMAX) 0.4 MG CapIndications:Alec gn prostatic hyperplasia with lower urinary tract symptoms, symptom details unspecified,Prostat e CA ([facility]) Take 1 capsule (0.4 mg total) by mouth daily. 90 capsule 1 4 Active vitamin D3, cholecalciferol, 125 mcg capsuleIndications: Low serum vitamin D Take 1 capsule (125 mcg total) by mouth daily. 90 capsule 1 4 Active dextromethorphan-gu aiFENesin ER (MUCINEX DM) 30-600 MG TABLET SR 12 HR 12 hr tabletIndications:A cute cough,Fluid level behind tympanic membrane of both ears,Viral URI with cough Take 1 tablet by mouth every 12 (twelve) hours as needed. 28 tablet 4 Active evolocumab (REPATHA) 140 MG/ML injection (SYRINGE)Indication s:Mixed hyperlipidemia INJECT 1 ML (140 MG TOTAL) INTO THE SKIN EVERY 14 DAYS 2 mL 2 5 Active Active Problems Problem Noted Date Diagnosed Date Vitamin D deficiency 10/14/2024 Stage 2 chronic kidney disease 10/14/2024 Atrial fibrillation ([facility]) 10/12/2024 PAD (peripheral artery disease) 08/31/2023 Overweight (BMI 25.0-29.9) 04/13/2023 Prediabetes 04/13/2023 Benign prostatic hyperplasia with lower urinary tract symptoms 04/14/2022 Prostate CA ([facility]) 04/14/2022 Essential hypertension 01/24/2020 Mixed hyperlipidemia 01/24/2020 Coronary artery disease invo lving [place] coronary artery of [place] heart without angina pectoris 01/24/2020 Resolved Problems Problem Noted Date Diagnosed Date Resolved Date Epigastric abdominal pain 02/06/2021 Chest pain 12/13/2020 04/14/2022 Other chest pain 01/24/2020 04/14/2022 Encounters Date Type Department Care Team Description 01/03/2025 Telephone [facility] [address] [place] [address] Hardy Montoya MD Reschedule from Last 3 Months Immunizations Immunization Administration Dates Next Due MODERNA COVID-19 (12+) MRNA, LNP-S, PF, 100 MCG/ 0.5 ML DOSE 10/31/2021,02/25/2021,01/28/2021 PFIZER COVID-19 (12+) MRNA, LNP-S, PF, JANINA-SUCROSE, 30 MCG/0.3 ML (COMIRNATY) 04/13/2024 Pneumococcal (Prevnar 20) 10/12/2024 Family History Relation Status Comments Brother Father Maternal Grandfather Maternal Grandmother Mother Paternal Grandfather Paternal Grandmother Sister Social History Tobacco Use Types Packs/Day Years Used Date Smoking Tobacco: Former Cigarettes Q uit: 1981 Smokeless Tobacco: Never Tobacco Cessation:Counseling Given: Yes Comments:N/A Alcohol Use Standard Drinks/Week Comments Yes 0 (1 standard drink = 0.6 oz pur e alcohol) 2 glasses of alcohol weekly Overall Financial Resource Strain (CARDIA) Answe r Date Recorded How hard is it for you to pa y for the very basics like food, housing, medical care, and heating? 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 Gender Identity Not on file Sexual Orientation Not on file Occupation Industry Job Start Date Job End Date retired Not on file Not on file Not on file Last Filed Vital Signs Vital Sign Reading Time Taken Comments Blood Pressure 124/62 10/26/2024 3:43 PM ROVING SIZER Pulse 86 10/26/2024 3:43 PM ROVING SIZER Temperature 36.4 C (97.5 F) 10/26/2024 3:43 PM ROVING SIZER Respiratory Rate 16 10/26/2024 3:43 PM ROVING SIZER Oxygen Saturation 97% 10/26/2024 3:43 PM ROVING SIZER Inhaled Oxygen Concentration - - Weight 73.9 kg (163 lb) 10/26/2024 3:43 PM ROVING SIZER Height 163.2 cm (5' 4.25 ) 10/26/2024 3:43 PM CS T Body Mass Index 27.76 10/26/2024 3:43 PM ROVING SIZER Plan of Treatment Upcoming Encounters Date Type Department Care Team (Late st Contact Info) Description 04/13/2025 7:20 AM CDT Office Visit [facility] [address] [place], [place] [id number] Héctor Ceballos MD [address] [place] [id number] 10/11/2025 9:00 AM ROVING SIZER [facility] [address] [place] [phone] Hardy Montoya MD [address] [place] [phone] Health Maintenance Due Date Last Done Comments DTaP, Tdap and Td Vaccines (1 - Tdap) 1961 Zoster Vaccines (1 of 2) 1992 Annual Medicare Wellness Visit 2007 RSV Immunization or 60+ Years (1 - 1-dose 75+ series) 2017 COVID-19 Vaccine ( season) 2024 04/13/2024, 10/31/2021, 02/25/2021, Additional history exists PHQ-2 (Physician [place]) 11/23/2024 10/26/2024 Pneumococcal Vaccine: 50+ Years Completed 10/12/2024 Meningococcal B Vaccine Aged Out No l onger eligible based on patient's age to complete this topic Meningococcal Vaccine Aged Out No cristian zamzam eligible based on patient's age to complete this topic RSV Immunizations Under 20 Months Aged Out No longer eligible based on patient's age to complete this topic Insurance MEDICARE MEDICARE Advance Directives Documents on File Type Date Recorded Patient Block Setter Gypsum Expl anation Advance Directives and Living Will 01/04/2020 12:00 AM ADVANCED DIRECTIVES * Full Code (Latest Code Status on File) Date Activated Date Inactivated Comments 12/13/2020 8:44 AM 12/15/2020 4:47 PM Care Teams Senior Government Program Analyst Relationship Specialty Start Date End Date Héctor Ceballos MD [address] [place] [address] [place] [address] PCP - General FAMILY PRACTICE 04/14/22 Hardy Montoya MD [address] [facility] [address] [address] [facility] 01/07/21
--- OUTSIDE RECORDS SUMMARY | 2025-03-21 15:12 | XMS_ITS | Referral Summary ---
Author Organization [facility] Address [address] [place] [address] Care Team Providers Care Home Insurance Agent Name Role Phone Rubens Mai Ma, MD Primary Care Provid er William Riggs MD Unavailable [phone] Jovanny Coombs MD Unavailable [phone] Armando Galeas MD Unavailable Hardy Montoya M.A., MD Unavailable [phone] Allergies Active Allergy Reactions Criticality Noted Date [...] (02/24/2022): Added automatically from request for surgery [id number] Elevated PSA 01/24/2022 Overview (01/24/2022): Added automatically from request for surgery [id number] Abdominal pain 02/11/2021 Overview (02/11/2021): Added automatically from request for surgery [id number] Weight loss 02/11/2021 Overview (02/11/2021): Added automatically from request for surgery [id number] Abnormal CT scan of heart 01/16/2021 Overview (01/16/2021): Added automatically from request for surgery [id number] Chest pain on breathing 01/16/2021 Bandemia 01/16/2021 Controlled type 2 diabetes m ellitus without complication, without long-term current use of insulin 01/16/2021 Essential hypertension 01/16/2021 Mixed hyperlipidemia 01/16/2021 History of atrial fibrillation 01/16/2021 Encounter for screening colonoscopy 03/02/2018 Overview (03/02/2018): Added automatically from request for surgery [id number] Primary cancer of skin of forehead 03/02/2018 Overview (03/02/2018): Added automatically from request for surgery [id number] 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 Diagnosis. 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 Gender Identity Not on file Sexual Orientation Not on file Last Filed Vital Signs [...] 03/13/2022 6:05 AM CDT Plan of Treatment Not on file Procedures Procedure Name Priority Date/Time Associated Diagnosis Comments EGFR STAT 02/22/2021 1:[address] ABDOMEN PELVIS W CONTRAST ED 02/07/2021 2:56 PM CDT LIPID PANEL Routine 01/17/2021 6:51 AM [employer]VAS GOODS FABRICATOR from Last 3 Months or Most Recently [...] LAB BLOOD ORDERABLES Final Re sult [facility] [id number] [facility] [place] [address] * CT Abdomen Pelvis W Contrast (02/07/2021 [...] ABDOMEN PELVIS W CONTRAST ORDERING HEALTHCARE PROVIDER: ZONIA CONNELL HISTORY: Right upper quadrant pain for [...] ABDOMEN PELVIS W CONTRAST ORDERING HEALTHCARE PROVIDER: ZONIA CONNELL HISTORY: Right upper quadrant pain for [...] recommended. Electronically signed by: David Stone M.D. Zonia Connell NP IMG CT PROCEDURES Final Resu lt * (ABNORMAL) Lipid panel (01/17/2021 6:51 AM [employer]VAS [employer] FABRICATOR) Cholesterol 203(H) 30 - 199 mg/dL [facility] [...] Pediatrics 2011;128:S213 2. NCEP Expert Panel. Circulation 2003;110:227 Current Interpretive Data was last revised on 2018. 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 01/17/2021 3:13 PM [employer]VAS [employer] FABRICATOR us Jovanny Coombs MD LAB B[place]OD [place] [address] [place] [facility] [place] [address] from Last 3 Months or Most Recently Relevant to Health Maintenance Insurance MEDICARE COMMERCIAL GENERIC MEDICARE [employer] SENIOR SUPPLEMENT Advance Directives For more information, please contact: [phone] * Full Code (Latest Code Status on File) Date Activated Date Inactivated Comments 01/17/2021 1:53 PM 01/19/2021 6:59 PM * Full Code Date Activated Date Inactivated Comments 01/16/2021 7:55 PM 01/17/2021 1:53 PM * Full Code Date Activated Date Inactivated Comments 03/25/2018 8:54 AM 03/25/2018 12:51 PM Care Teams Home Insurance Agent Relationship Specialty Start Date End Date Rubens Mai Ma, MD [address] [place] [address] [place] [address] PCP - General 03/27/17 William Riggs MD [address] [place] [address] [place] [address] Referring Physician Dermatology 05/05/18 Jovanny Coombs MD [address] [place] [address] [place] [address] Consulting Physician Cardiology 01/19/21 Armando Galeas MD [address] [place] [address] [place] [address] Consulting Physician Gastroenterology 01/19/21 Hardy Montoya M.A., MD [facility] [place] [address] Referring Physician Cardiovascular Disease 01/19/21
== END 2025-03-21 13:55 | disposition home or self-care (01) ==
PROVIDERS: PCP Family Medicine; Visit Provider Urology
DX: C61 Malignant neoplasm of prostate (principal)
CPT/HCPCS: 78815; A9596